=== PATIENT | male | born 1955 | race Two or more races ===

== ENCOUNTER 2016-12-05 19:34 | Emergency (ER) | payer SELFPAY ==
[~2016-12-05] VITALS: Ht 180.3 cm; Wt 102.1 kg
[2016-12-05] MEDS ORDERED: IV NORMAL SALINE 1000ML BAG 1,000 ML IV SCH (20:20)
[2016-12-05 20:27] LABS: BASO # 0.1 x10^3/uL (0.0-0.2); BASO % 1 % (0-3); EOS % 2 % (0-3); HEMATOCRIT 43.4 % (39.0-53.0); HEMOGLOBIN 14.4 g/dL (13.0-17.5); LYMPH # 3.2 x10^3/uL (1.0-4.8); LYMPH % 22 % (24-48); MEAN CORPUSCULAR HEMOGLOBIN 30 pg (25-35); MEAN CORPUSCULAR HGB CONC 33 g/dL (31-37); MEAN CORPUSCULAR VOLUME 89 fL (79-100); MONO % 9 % (0-9); NEUT % 67 % (31-73); PLATELET COUNT 222 x10^3/uL (140-400); RED BLOOD COUNT 4.88 x10^6/uL (4.30-5.70); RED CELL DISTRIBUTION WIDTH 13.6 % (11.5-14.5); WHITE BLOOD COUNT 14.2 x10^3/uL (4.0-11.0)
[2016-12-05 20:29] LABS: BILIRUBIN,URINE NEGATIVE (NEG); GLUCOSE,URINE NEGATIVE (NEG); NITRITE,URINE NEGATIVE (NEG); PROTEIN,URINE 100 mg/dL (NEG-TRACE); UROBILINOGEN,URINE 0.2 mg/dL (0.2 mg/dL)
[2016-12-05] MEDS ORDERED: ONDANSETRON PF 4 MG/2 ML VIAL. IV ONE (20:30)
[2016-12-05] MEDS ORDERED: fentaNYL PF VIAL 100 MCG/2 ML VIAL IV PRN (20:30)
[2016-12-05 20:36] LABS: CALCIUM 8.6 mg/dL (8.5-10.1); CREATININE 1.5 mg/dL (0.7-1.3); GFR 47.9; POTASSIUM 3.9 mmol/L (3.5-5.1)
[2016-12-05 20:42] LABS: ALBUMIN 4.3 g/dL (3.4-5.0); ALBUMIN/GLOBULIN RATIO 1.2 (1.0-1.7); TOTAL BILIRUBIN 0.7 mg/dL (0.2-1.0); TOTAL PROTEIN 7.8 g/dL (6.4-8.2)
--- NOTE | 2016-12-05 20:43 | RAD ---
CT Abdomen and Pelvis without contrast History: Severe right flank pain since last week, dysuria, hematuria Technique: Noncontrast CT imaging was performed of the abdomen and pelvis. Multiplanar images are reviewed. Exposure: One or more of the following individualized dose reduction techniques were utilized for this examination: 1. Automated exposure control 2. Adjustment of the mA and/or kV according to patient size 3. Use of iterative reconstruction technique. Comparison: None Findings: There is mild right hydroureteronephrosis, 2 to 3 mm calculus at the right ureterovesical junction protruding into the urinary bladder lumen. There is small 1 to 2 mm inferior right renal calculus. There may be cysts in the left renal pelvis. No left renal or ureteral calculus is identified. There is a small 10 mm focus of relative hyperdensity of the mid to superior left kidney. Accurate evaluation of abdominal visceral organs is limited without intravenous contrast. There is no obvious abnormality of the spleen, liver, or pancreas. There is no adrenal nodularity. No significantly enlarged nodes are identified. Accurate evaluation of bowel is limited without oral contrast. There is no significant free air, free fluid, bowel dilatation. There is moderate to severe degenerative disc disease L5-S1. Impression: 1. There is mild right hydroureteronephrosis, small calculus at the right ureterovesical junction protruding into the urinary bladder lumen. There is small inferior right renal calculus. 2. There may be cysts of the left renal pelvis. 3. There is approximate 10 mm focus of hyperdensity of the mid to superior left kidney. This may be a hemorrhagic cyst. Nonemergent ultrasound evaluation may be beneficial. Electronically signed by: Ki Tao MD (12/05/2016 8:40 PM) [facility]
[2016-12-05 20:47] LABS: BACTERIA,URINE FEW /HPF (0-FEW); RBC,URINE OCC /HPF (0-2); SQUAMOUS EPITHELIAL CELL,UR FEW /LPF; WBC,URINE OCC /HPF (0-4)
--- NOTE | 2016-12-05 21:30 | PHYS DOC ---
Past Medical History Past Medical History: No Pertinent History Past Surgical History: Other Additional Past Surgical Histo: L ankle Alcohol Use: None Drug Use: None Adult General Chief Complaint Chief Complaint: FLANK PAIN HPI HPI Patient is a 61 year old male who presents with complaint of lower abdominal pain. Patient states that he has been having worsening symptoms over the past 2- 3 days. The patient states that he was evaluated last week at a free standing emergency department and diagnosed with urinary tract infection. Patient states that he was started on antibiotic but was not treated with anything for pain. Patient states his symptoms have continued to worsen despite treatment with the antibiotic. Patient states that he had no imaging done at his previous visit. Patient has had nausea but denies vomiting or fever. Patient states that the pain comes and goes but worsens when he urinates. Patient's pain levels currently 4 out of 10. Patient states that increases to 8 out of 10 with urination. The patient denies history of similar symptoms. Patient has tried taking naproxen with no relief in symptoms. Review of Systems Review of Systems Constitutional: Denies fever or chills [] Eyes: Denies change in visual acuity, redness, or eye pain [] HENT: Denies nasal congestion or sore throat [] Respiratory: Denies cough or shortness of breath [] Cardiovascular: Denies chest pain or edema [] GI: Nausea, abdominal pain, denies vomiting, bloody stools or diarrhea [] : Dysuria, hematuria, right flank pain [] Musculoskeletal: Denies back pain or joint pain [] Integument: Denies rash or skin lesions [] Neurologic: Denies headache, focal weakness or sensory changes [] Current Medications Current Medications Current Medications Medications (Trade) Dose Ordered Sig/Karen Start Time Stop Time Status Last Admin Dose Admin Fentanyl Citrate (Fentanyl 2ml Vial) 50 mcg PRN Q15MIN PRN 12/05/16 20:30 12/06/16 20:29 12/05/16 20:35 50 MCG Ketorolac Tromethamine (Toradol) 15 mg 1X ONCE 12/05/16 22:00 12/05/16 22:01 12/05/16 21:56 15 MG Ondansetron HCl (Zofran) 4 mg 1X ONCE 12/05/16 20:30 12/05/16 20:31 DC 12/05/16 20:34 4 MG Sodium Chloride 1,000 ml @ 1,000 mls/hr Q1H 12/05/16 20:20 12/05/16 21:19 DC 12/05/16 20:36 1,000 MLS/HR Tamsulosin HCl (Flomax) 0.4 mg 1X ONCE 12/05/16 22:00 12/05/16 22:01 12/05/16 21:55 0.4 MG Allergies Allergies Allergies Coded Allergies Type Severity Reaction Last Updated Verified No Known Drug Allergies 12/05/16 No Physical Exam Physical Exam Constitutional: Alert, afebrile, appears in moderate discomfort. [] HENT: Normocephalic, atraumatic, bilateral external ears normal, oropharynx moist, no oral exudates, nose normal. [] Eyes: PERRLA, EOMI, conjunctiva normal, no discharge. [] Neck: Normal range of motion, no tenderness, supple, no stridor. [] Cardiovascular:Heart rate regular rhythm, no murmur [] Lungs & Thorax: Bilateral breath sounds clear to auscultation [] Abdomen: Bowel sounds normal, soft, mild suprapubic tenderness to palpation, no masses, no pulsatile masses. [] Skin: Warm, dry, no erythema, no rash. [] Back: No tenderness, no CVA tenderness. [] Extremities: No tenderness, no cyanosis, no clubbing, ROM intact, no edema. [] Neurologic: Alert and oriented X 3, normal motor function, normal sensory function, no focal deficits noted. [] Current Patient Data Vital Signs Vital Signs Date Time Temp Pulse Resp B/P (MAP) Pulse Ox O2 Delivery O2 Flow Rate FiO2 12/05/16 20:35 18 98 Room Air 12/05/16 19:52 98.5 78 159/88 (111) 98.5 Lab Values Laboratory Tests Test 12/05/16 19:45 12/05/16 20:05 White Blood Count 14.2 x10^3/uL (4.0-11.0) H Red Blood Count 4.88 x10^6/uL (4.30-5.70) Hemoglobin 14.4 g/dL (13.0-17.5) Hematocrit 43.4 % (39.0-53.0) Mean Corpuscular Volume 89 fL (79-100) Mean Corpuscular Hemoglobin 30 pg (25-35) Mean Corpuscular Hemoglobin Concent 33 g/dL (31-37) Red Cell Distribution Width 13.6 % (11.5-14.5) Platelet Count 222 x10^3/uL (140-400) Neutrophils (%) (Auto) 67 % (31-73) Lymphocytes (%) (Auto) 22 % (24-48) L Monocytes (%) (Auto) 9 % (0-9) Eosinophils (%) (Auto) 2 % (0-3) Basophils (%) (Auto) 1 % (0-3) Neutrophils # (Auto) 9.5 x10^3uL (1.8-7.7) H Lymphocytes # (Auto) 3.2 x10^3/uL (1.0-4.8) Monocytes # (Auto) 1.2 x10^3/uL (0.0-1.1) H Eosinophils # (Auto) 0.2 x10^3/uL (0.0-0.7) Basophils # (Auto) 0.1 x10^3/uL (0.0-0.2) Sodium Level 145 mmol/L (136-145) Potassium Level 3.9 mmol/L (3.5-5.1) Chloride Level 106 mmol/L (98-107) Carbon Dioxide Level 27 mmol/L (21-32) Anion Gap 12 (6-14) Blood Urea Nitrogen 23 mg/dL (8-26) Creatinine 1.5 mg/dL (0.7-1.3) H Estimated GFR (Cockcroft-Gault) 47.9 BUN/Creatinine Ratio 15 (6-20) Glucose Level 101 mg/dL (70-99) H Calcium Level 8.6 mg/dL (8.5-10.1) Total Bilirubin 0.7 mg/dL (0.2-1.0) Aspartate Amino Transferase (AST) 48 U/L (15-37) H Alanine Aminotransferase (ALT) 68 U/L (16-63) H Alkaline Phosphatase 73 U/L (46-116) Total Protein 7.8 g/dL (6.4-8.2) Albumin 4.3 g/dL (3.4-5.0) Albumin/Globulin Ratio 1.2 (1.0-1.7) Lipase 247 U/L (73-393) Urine Collection Type Unknown Urine Color Yellow Urine Clarity Clear Urine pH 5.0 Urine Specific [place] >=1.030 Urine Protein 100 mg/dL (NEG-TRACE) Urine Glucose (UA) Negative mg/dL (NEG) Urine Ketones (Stick) 15 mg/dL (NEG) Urine Blood Small (NEG) Urine Nitrite Negative (NEG) Urine Bilirubin Negative (NEG) Urine Urobilinogen Dipstick 0.2 mg/dL (0.2 mg/dL) Urine Leukocyte Esterase Negative (NEG) Urine RBC Occ /HPF (0-2) Urine WBC Occ /HPF (0-4) Urine Squamous Epithelial Cells Few /LPF Urine Bacteria Few /HPF (0-FEW) Urine Hyaline Casts Few /HPF Urine Mucus Marked /LPF Laboratory Tests 12/05/16 19:45 Laboratory Tests 12/05/16 19:45 EKG EKG Not performed [] Radiology/Procedures Radiology/Procedures [facility] [address] [place] [address] IMAGING REPORT Signed PATIENT: CHRISTY HAWTHORNE ACCOUNT: [id number] : 1955 LOCATION: ER AGE: 61 SEX: M EXAM STATUS: REG ER ORD. PHYSICIAN: LINK CHAVEZ MD REASON: dysuria, hematuria, right flank pain PROCEDURE: CT ABDOMEN PELVIS WO CONTRAST CT Abdomen and Pelvis without contrast History: Severe right flank pain since last week, dysuria, hematuria Technique: Noncontrast CT imaging was performed of the abdomen and pelvis. Multiplanar images are reviewed. Exposure: One or more of the following individualized dose reduction techniques were utilized for this examination: 1. Automated exposure control 2. Adjustment of the mA and/or kV according to patient size 3. Use of iterative reconstruction technique. Comparison: None Findings: There is mild right hydroureteronephrosis, 2 to 3 mm calculus at the right ureterovesical junction protruding into the urinary bladder lumen. There is small 1 to 2 mm inferior right renal calculus. There may be cysts in the left renal pelvis. No left renal or ureteral calculus is identified. There is a small 10 mm focus of relative hyperdensity of the mid to superior left kidney. Accurate evaluation of abdominal visceral organs is limited without intravenous contrast. There is no obvious abnormality of the spleen, liver, or pancreas. There is no adrenal nodularity. No significantly enlarged nodes are identified. Accurate evaluation of bowel is limited without oral contrast. There is no significant free air, free fluid, bowel dilatation. There is moderate to severe degenerative disc disease L5-S1. Impression: 1. There is mild right hydroureteronephrosis, small calculus at the right ureterovesical junction protruding into the urinary bladder lumen. There is small inferior right renal calculus. 2. There may be cysts of the left renal pelvis. 3. There is approximate 10 mm focus of hyperdensity of the mid to superior left kidney. This may be a hemorrhagic cyst. Nonemergent ultrasound evaluation may be beneficial. Electronically signed by: Ce Rubalcava MD (12/05/2016 8:40 PM) [facility] DICTATED and SIGNED BY: CE RUBALCAVA MD DATE: 12/05/162034 CC: LINK CHAVEZ MD; NO PCP ~ [] Course & Med Decision Making Course & Med Decision Making Pertinent Labs and Imaging studies reviewed. (See chart for details) The patient was given IV fluids, fentanyl, Zofran. The patient was found have evidence of right ureteral stone. Patient given Toradol and Flomax. On reevaluation, the patient states that his pain has improved. The patient will be discharged with prescriptions for [place], Zofran, and Flomax. Patient referred to [facility] for follow-up in one week if symptoms do not improve. Advised return emergency department for any worsening symptoms. Patient voiced understanding and in agreement with treatment plan. Dragon Disclaimer Dragon Disclaimer This electronic medical record was generated, in whole or in part, using a voice recognition dictation system. Departure Departure Impression: Primary Impression: Ureteral colic Additional Impression: Kidney stone Disposition: 01 HOME, SELF-CARE Condition: IMPROVED Referrals: NO PCP (PCP) Patient Instructions: Kidney Stones Additional Instructions: Follow up with [facility] in 1 week if symptoms do not improve. There office number is and there office address is [address] [place] [address], [place] [address]. Return to the emergency department for any worsening symptoms. Scripts Tamsulosin Hcl (FLOMAX) 0.4 Mg Cap.er.24h 1 CAP PO DAILY, #30 CAP 0 Refills Prov: LINK CHAVEZ MD 12/05/16 Ondansetron (ZOFRAN ODT) 4 Mg Tab.rapdis 1 TAB SL Q8HRS Y for NAUSEA/VOMITING, #15 TAB Prov: LINK CHAVEZ MD 12/05/16 Hydrocodone/Apap 5-325 (NORCO 5-325 TABLET) 1 Each Tablet 1-2 TAB PO Q4-6HRS Y for PAIN, #20 TAB Prov: LINK CHAVEZ MD 12/05/16 Problem Qualifiers LINK CHAVEZ MD Dec 05, 2016 21:30
[2016-12-05 22:00] VITALS: BP 146/83
[2016-12-05] MEDS ORDERED: TAMSULOSIN 0.4 MG CAP.ER.24H. PO ONE (22:00)
[2016-12-05] MEDS ORDERED: KETOROLAC 15 MG/ML VIAL. IV ONE (22:00)
[2016-12-05] MEDS ORDERED: HYDR-971 PO (22:06)
[2016-12-05] MEDS ORDERED: TAMS0.4C97 PO (22:06)
[2016-12-05] MEDS ORDERED: ONDA4TAB10 SL (22:06)
== END 2016-12-05 22:10 | disposition home or self-care (01) ==
LOC: ER 19:34
DX: N23 Unspecified renal colic (principal); N20.0 Calculus of kidney
CPT/HCPCS: 36415; 74176; 80053; 81001; 83690; 85025; 96361; 96374; 96375; 99285; J1885; J2405; J3010; J7030